=== PATIENT | female | born 2000 | race Caucasian/White ===

== ENCOUNTER 2021-01-11 12:49 | Emergency (ER) | payer OTHER ==
[~2021-01-11] VITALS: Ht 160 cm; Wt 56.7 kg
[2021-01-11 12:59] VITALS: BP 123/72
[2021-01-11] MEDS ORDERED: IV NS 0.9% 1,000 ML IV ONE (13:30)
[2021-01-11] MEDS ORDERED: KETOROLAC TROMETHAMINE INJ 30 MG/ML VIAL IV ONE (13:30)
[2021-01-11] MEDS ORDERED: DEXAMETHASONE SOD PHOSPHATE 10 MG/ML VIAL IV ONE (13:30)
[2021-01-11] MEDS ORDERED: KETOROLAC TROMETHAMINE 15 MG/ML VIAL ONE (13:45)
[2021-01-11] MEDS ORDERED: DEXAMETHASONE SOD PHOSPHATE 10 MG/ML VIAL ONE (13:45)
--- NOTE | 2021-01-11 13:47 | NUR ---
urine collected and sent to lab
[2021-01-11] MEDS ORDERED: IBUP-1955 PO (14:37)
--- NOTE | 2021-01-11 15:08 | NUR ---
Patient discharged to home in stable condition. Written and verbal after care instructions given. Patient verbalizes understanding of instruction.
== END 2021-01-11 15:08 | disposition home or self-care (01) ==
LOC: ER 12:52
DX: J02.0 Streptococcal pharyngitis (principal); Z88.2 Allergy status to sulfonamides; Z88.8 Allergy status to other drugs, medicaments and biological substances
CPT/HCPCS: 84703; 96361; 96374; 96375; 99284; J1100; J1885; J7030

== ENCOUNTER → 2021-03-07 | Emergency (ER) | payer OTHER ==
[~2021-03-07] VITALS: Ht 160 cm; Wt 56.7 kg
[~2021-03-07] MED LIST: AMOX-427 PO; DEXAMETHASONE SOD PHOSPHATE 10 MG/ML VIAL ONE; DEXAMETHASONE SOD PHOSPHATE 4 MG/ML VIAL IM ONE; IBUP-1955 PO; KETOROLAC TROMETHAMINE INJ 30 MG/ML VIAL IM ONE; KETOROLAC TROMETHAMINE INJ 30 MG/ML VIAL ONE
[2021-03-07 09:18] VITALS: BP 109/64
== END | disposition home or self-care (01) ==
LOC: ER 09:25
DX: J02.0 Streptococcal pharyngitis (principal); R59.0 Localized enlarged lymph nodes; Z88.2 Allergy status to sulfonamides; Z88.1 Allergy status to other antibiotic agents
CPT/HCPCS: 96372 ×2; 99284; J1100; J1885